=== PATIENT | male | born 1970 | race African-American/Black ===

== ENCOUNTER → 2019-05-13 | Outpatient (CLI) | payer OTHER ==
--- NOTE | 2019-05-13 09:54 | Diagnostic Imaging Report ---
EXAM: US ABDOMEN COMPLETE DATE: 05/13/2019 8:58 AM INDICATION: Hematuria COMPARISON: None TECHNIQUE: Transverse and longitudinal lee scale and color doppler sonographic images of the upper abdomen were obtained. FINDINGS: LIVER 14.2 cm in the right midclavicular line. Normal echogenicity of the liver with normal contour, no masses. SPLEEN 9.1 cm in maximum diameter. Normal echogenicity, no masses. GALLBLADDER No gallbladder wall thickening, distension, stone, or pericholecystic fluid. Negative reported sonographic Pruitt's sign. The gallbladder wall measures 3mm BILE DUCTS No intra nor extra-hepatic biliary dilation. Common bile duct measures 4mm PANCREAS: Visualized portions are normal. RIGHT KIDNEY: 12.0 cm Echogenicity: Normal Collecting System: No hydronephrosis Stones: None Cyst/Mass: None LEFT KIDNEY: 11.9 cm Echogenicity: Normal Collecting System: No hydronephrosis Stones: None Cyst/Mass: None VESSELS: Aorta: Visualized portions are within normal size limits Inferior Vena Cava: Visualized portions are normal Main Portal Vein: 1.3 cm, normal size with hepatopetal flow. FREE FLUID: None IMPRESSION: Unremarkable abdominal ultrasound. Signed by: Светлана Gramajo MD on 05/13/2019 9:51 AM
== END ==
LOC: RAD 08:48
PROVIDERS: ATTEND Internal Medicine
DX: R31.9 Hematuria, unspecified (principal)
CPT/HCPCS: 76700

== ENCOUNTER → 2019-08-09 | Outpatient (CLI) | payer OTHER ==
[~2019-08-09] MED LIST: DIATRIZOATE MEGL/DIATRIZOA SOD 30 ML BTL PO ONE
[2019-08-09 10:26] LABS: CREATININE, SERUM 2.75 mg/dL (0.72-1.25)
--- NOTE | 2019-08-09 11:40 | Diagnostic Imaging Report ---
EXAM: THORACIC SPINE 2VW, SP LUMBAR, COMPLETE MIN 4VW DATE: 08/09/2019 10:48 AM INDICATION: Thoracic/lumbar spondylosis COMPARISON: None FINDINGS: Thoracic spine: Thoracic spinal alignment is within normal limits. There is no evidence for acute fracture or dislocation. Vertebral body heights and intervertebral disc space heights are maintained. No focal lytic or blastic abnormalities identified. The visualized lungs are clear. The surrounding soft tissues are unremarkable. Lumbar spine: Lumbar spinal alignment is within normal limits. There is no evidence for acute fracture or dislocation. No focal lytic or blastic abnormality is identified. The surrounding soft tissues are unremarkable. There is mild (approximately 6 mm) of anterolisthesis of L5 on S1 with suspected bilateral pars defects at L5. There are mild degenerative changes of the lumbar spine more prominent within the lower lumbar spine. IMPRESSION: No acute radiographic abnormality identified within the thoracic spine. Suspected bilateral pars defects noted at L5 with associated anterolisthesis of L5 on S1. Signed by: Dr. Dung Flores MD on 08/09/2019 11:37 AM
--- NOTE | 2019-08-09 13:23 | Diagnostic Imaging Report ---
CT of the abdomen and pelvis. History: Abdominal pain. Comparison: Abdominal ultrasound from 05/13/2019. Technique: Multidetector CT scanning of the abdomen and pelvis was performed from the level of the lung bases to the inferior pubic rami after intravenous the administration of enteric contrast material. No intravenous contrast material was administered given patient's elevated creatinine. Coronal and sagittal multiplanar reformations were obtained. RADIATION DOSE: Total DLP: 450.10 mGy*cm Dose modulation, iterative reconstruction, and/or weight based adjustment of the mA/kV was utilized to reduce the radiation dose to as low as reasonably achievable. FINDINGS: The visualized lungs are unremarkable. The imaged portion of the heart demonstrates no significant abnormalities. The liver is normal in size and attenuation on this noncontrast enhanced examination. The gallbladder is unremarkable. There is no biliary ductal dilatation. The stomach, spleen, pancreas, and bilateral adrenal glands demonstrate an unremarkable noncontrast appearance. The kidneys are normal in size and location is no evidence for nephrolithiasis or hydronephrosis. No ureteral stone or dilatation is appreciated. The urinary bladder and prostate demonstrate no significant abnormalities. Incidentally noted are calcifications of the seminal vesicles. The abdominal aorta is normal course and caliber with minimal atherosclerotic calcifications. The IVC is normal in caliber. The visualized loops of small and large bowel demonstrate no evidence of obstruction or inflammation. The appendix is visualized and appears unremarkable. There is no ascites or intraperitoneal free air. No abnormally enlarged lymph nodes are identified within the abdomen or pelvis. Bilateral pars defects noted at L5 with associated mild anterolisthesis of L5 on S1. The osseous structures otherwise demonstrate no evidence for acute fracture or destructive process. The extraperitoneal soft tissues are unremarkable. IMPRESSION: No acute abdominopelvic process identified. Signed by: Dr. Dung Flores MD on 08/09/2019 1:19 PM
== END ==
LOC: CT 09:26
PROVIDERS: ATTEND Internal Medicine
DX: M47.814 Spondylosis without myelopathy or radiculopathy, thoracic region (principal); M47.816 Spondylosis without myelopathy or radiculopathy, lumbar region; D36.7 Benign neoplasm of other specified sites; K57.92 Diverticulitis of intestine, part unspecified, without perforation or abscess without bleeding
CPT/HCPCS: 36415; 72070; 72110; 74176; 82565; 84520